=== PATIENT | male | born 1970 | race Caucasian/White ===

== ENCOUNTER 2023-07-05 11:30 | Outpatient (CLI) | payer BC, OTHER ==
[2023-07-05 17:54] LABS: CALCIUM 10.1 mg/dL (8.5-10.3); CREATININE 1.2 mg/dL (0.6-1.3); POTASSIUM 4.2 mmol/L (3.5-4.5)
== END 2023-07-05 11:45 | disposition home or self-care (01) ==
LOC: LAB.N 11:30
PROVIDERS: ATTEND Family Medicine
DX: I10 Essential (primary) hypertension (principal)
CPT/HCPCS: 36415; 80048

== ENCOUNTER 2024-03-17 14:52 | Emergency (ER) | payer BC ==
[2024-03-17] MEDS: KETOROLAC 15 MG/ML VIAL IM STA (15:55)
[2024-03-17] MEDS: KETOROLAC 15 MG/ML VIAL IVP STA (16:15)
--- NOTE | 2024-03-17 16:38 | XRAY Report ---
PROCEDURE: Knee 4+V RT INDICATIONS: right knee pain and swelling TECHNIQUE: 3 views of the knee was obtained. COMPARISON: None FINDINGS: Bones: No fractures or dislocations. No suspicious bony lesions. Soft tissues: Moderate knee joint effusion. No suspicious soft tissue calcifications or masses. IMPRESSION: Moderate joint effusion without fracture or foreign body Reviewed by: Branden Murillo MD on 03/17/2024 3:36 PM AKDT Approved by: Branden Murillo MD on 03/17/2024 3:36 PM AKDT Station ID: [id number]
--- NOTE | 2024-03-17 16:50 | ED Physician Documentation ---
History of Present Illness - Stated complaint Stated Complaint: BILAT KNEE PX/SWELLING - Chief complaint Chief Complaint: Ext Problem - Additonal information Additional information: Patient is a 54-year-old male presenting to the emergency department with knee pain. Patient had right knee swelling going on for few days now. He notes worsening pain with walking. He notes last week he had similar symptoms in his left knee that resolved on their own. He notes his right knee has been persistent and not resolving so he decided to come to the emergency department. He denies any trauma he notes he does occasional heavy lifting around the house but nothing new that he can remember. He denies any twisting or turning of it. He notes pain worsens with flexion or complete extension. He notes he has to hold it at an angle to help with pain control. PD PAST MEDICAL HISTORY - Past Medical History Past Medical History: Yes Cardiovascular: Hypertension Respiratory: None Endocrine/Autoimmune: None Psych: None Musculoskeletal: None - Past Surgical History Past Surgical History: Yes General: Hiatal hernia repair Ortho: Other - Present Medications Home Medications: Ambulatory Orders Medication Instructions Recorded Confirmed Lisinopril 20 mg PO DAILY 11/21/13 03/17/24 Ibuprofen [Motrin] 1 tablet PO Q8H PRN #30 tablet 03/17/24 - Allergies Allergies/Adverse Reactions: Allergies Allergy/AdvReac Type Severity Reaction Status Date / Time acetaminophen [From Vicodin] Allergy Anaphylaxis Verified 03/17/24 15:12 hydrocodone [From Vicodin] Allergy Anaphylaxis Verified 03/17/24 15:12 - Social History Does the pt smoke?: No Smoking Status: Never smoker Does the pt drink ETOH?: No Does the pt have substance abuse?: No - Immunizations Immunizations are current?: Yes - POLST Patient has POLST: No PD ED PE NORMAL - Vitals Vital signs reviewed: Yes - General General: Alert and oriented X 3 - HEENT HEENT: Atraumatic - Neck Neck: Supple, no meningeal sign - Cardiac Cardiac: RRR, No murmur, No gallop, No rub - Respiratory Respiratory: No respiratory distress, Clear bilaterally - Derm Derm: Normal color - Free text exam Free text exam: Right knee shows no significant redness or warmth to the joint. Patient's knee held in slight flexion. However he is able to provide increased flexion and complete extension with pain however. Pulses intact distally. No significant erythema or warmth to the joint. Good capillary refill and sensation throughout knee. Results - Vitals Vitals: Vital Signs - 24 hr 03/17/24 03/17/24 14:56 17:09 Temperature 36.8 C Heart Rate 98 79 Respiratory 16 17 Rate Blood Pressure 180/100 H 186/100 H O2 Saturation 97 99 Oxygen O2 Source Room air - Rads (name of study) right knee x-ray Relevant Findings:: EMP independent interpretation of test (moderate joint effusion wihtout fracture or foreign body) PD Medical Decision Making - ED course Complexity details: reviewed old records ED course: Patient is a 54-year-old male presenting to the emergency department with right knee pain. He notes symptoms started few days ago initially started in his left knee but this resolved and now have progressively worsened to his right knee. Denies any trauma he notes he does occasional heavy lifting and previously was a construction equipment mechanic but denies any recent any injury that could have caused the symptoms. He has not taking anything for his pain at home. He denies any history of DVTs no PEs. No recent history of surgeries. He has no history of gout. Right knee X-ray: Moderate joint effusion without fracture or foreign body Discussed with patient physical exam findings are reassuring no calf tenderness no obvious laxity to the knee symptoms could be secondary to meniscal injury versus ligament injury. He needs to ice elevate and rest his knee. If he develops any redness or warmth to the knee he needs to follow-up with his PCP. Discussed with possible gout episodes however patient has no history and prior to development knee. However patient will be started on ibuprofen which will help with any symptoms of gout. Instructed patient to follow-up with his PCP and will give number for orthopedics as he may require further imaging. Patient understands and is agreeable with this plan. Instructed patient to return with any fevers worsening pain unable to bear weight on right knee. Additionally he was given a knee brace to help with pain control and stability. Departure - Departure Disposition: 01 Home, Self Care Clinical Impression: Effusion of right knee joint Condition: Good Follow-Up: Stefan Rose MD [Provider Admit Priv/Credential] - Comments: Your workup here in the emergency department shows moderate joint effusion and symptoms most likely secondary to ligament or meniscal injury however if you develop any erythema or redness to the joint you should return to the emergency department. Follow-up with your PCP and have given you the number for orthopedics as you may require further imaging in the outpatient setting. Return with any fevers worsening pain unable to bear weight on right knee or redness or warmth to the joint. Forms: PCP List
[2024-03-17 17:14] VITALS: BP 186/100; O2SAT 99
== END 2024-03-17 17:35 | disposition home or self-care (01) ==
LOC: ED 14:52
DX: M25.461 Effusion, right knee (principal); I10 Essential (primary) hypertension; Z79.899 Other long term (current) drug therapy
CPT/HCPCS: 96372; 99283; 99284